=== PATIENT | male | born 1960 | race Two or more races ===

== ENCOUNTER 2025-05-18 02:17 | Emergency (ER) | payer OTHER ==
[~2025-05-18] VITALS: Ht 175.3 cm; Wt 89.9 kg
[2025-05-18 03:12] VITALS: BP 157/82; PULSE 55; RESP 18; TEMP 98.9; O2SAT 96
[2025-05-18] MEDS: IBUPROFEN 600 MG TAB PO ONE (03:14)
--- NOTE | 2025-05-18 03:18 | ED.PDOC ---
HPI (NEURO) HPI Comments 64-year-old male complains of dull left-sided headache and left neck pain after he moved his head while fixing his house. Patient states he felt a pop Chief Complaint: Headache Time Seen by MD: 02:19 Information Source: Patient Mode of Arrival: Ambulatory Severity: Moderate Headache Severity: Moderate, Severe Timing: Hours Duration: Since onset Headache Quality: Aching Past Medical History PAST MEDICAL HISTORY: High Lipids Surgical History: Denies all surgeries Family History Family History: Reviewed,noncontributory to illness Social History Smoker: Non-Smoker Alcohol: Denies ETOH Use Drugs: Denies Drug Use Lives In: Home Neurological: reports: headache Musculoskeletal: reports: neck pain All Other Systems: Reviewed and Negative Physical Exam General Appearance: Mild Distress, Moderate Distress HEENT: Normal ENT Inspection, Pharynx Normal, TMs Normal Neck: Other (mild tenderness left neck) Respiratory: Chest Non-Tender, Lungs Clear, No Accessory Muscle Use, No Respiratory Distress, Normal Breath Sounds Cardiovascular: No Edema, No JVD, No Murmur, No Gallop, Normal Peripheral Pulses, Regular Rate/Rhythm Breast Exam: Deferred Gastrointestinal: No Organomegaly, Non Tender, No Pulsatile Mass, Normal Bowel Sounds, Soft Genitalia: Deferred Pelvic: Deferred Rectal: Deferred Extremities: No calf tenderness, Normal capillary refill, Normal inspection, Normal range of motion, Non-tender, No pedal edema Musculoskeletal : Apperance: Normal Neurologic: Alert, battery container tester II-XII nml as Tested, No Motor Deficits, Normal Affect, Normal Mood, No Sensory Deficits Cerebellar Function: Normal Reflexes: Normal Skin: Dry, Normal Color, Warm Lymphatic: No Adenopathy Was a procedure done? Was a procedure done?: No Differential Diagnosis (SZ) Seizure: Closed Head Injury, Mass Lesion, Meningitis, Syncope, Encephalopathy, Epilepsy-Break Through, Epilepsy-Status, Other X-Ray, Labs, Meds, VS Vital Signs Date Time Temp Pulse Resp B/P (MAP) Pulse Ox O2 Delivery O2 Flow Rate FiO2 05/18/25 03:12 98.9 55 18 157/82 (107) 96 98.9 05/18/25 02:18 96.1 56 18 136/85 98 96.1 Current Medications Medications (Trade) Dose Ordered Sig/Jeanne Route Start Time Stop Time Status Last Admin Ibuprofen (Motrin Tablet) 600 mg ONCE ONCE PO 05/18/25 03:00 05/18/25 03:01 DC 05/18/25 03:14 Time of 1ST Reevaluation: 03:17 Reevaluation 1ST: Unchanged Patient Education/Counseling: Diagnosis, Treatment Family Education/Counseling: No Family Present Departure 1 Departure Time of Disposition: 05:00 Impression: Primary Impression: Headache Additional Impression: Neck pain Disposition: 01 HOME / SELF CARE / HOMELESS Condition: Stable e-Prescriptions Gabapentin (Once-Daily) (Gabapentin) 300 Mg Tab 300 MG PO Q6HP PRN, #60 TAB Prov: MARINE PORTER MD 05/18/25 Discharged With: Self Critical Care Note Critical Care Time?: No Stability Stability form required: No Heart Score Heart Score: Heart Score Response (Comments) Value History N/A 0 EKG N/A 0 Age N/A 0 Risk Factors N/A 0 Troponin N/A 0 Total 0 MARINE PORTER MD May 18, 2025 03:18
--- NOTE | 2025-05-18 03:23 | DVH ---
EXAM: CT HEAD WITHOUT CONTRAST INDICATION: severe headache TECHNIQUE: CT of the head without intravenous contrast. Radiation Dose : 1. Head: CT Dose: CTDI volume is 51.82 mGy. Dose-length product is 1267.86 mGy*cm The dose indicators for CT are the volume Computed Tomography (CT) Dose Index (CTDIvol) and the Dose Length Product (DLP), and are measured in units of mGy and mGy-cm, respectively. These indicators are not patient dose, but values generated from the CT scanner acquisition factors. The report includes radiation exposure data for exposures received during this examination. COMPARISON: None FINDINGS: There is no evidence of acute intracranial hemorrhage, extra-axial collection, mass effect, midline s hift, herniation or hydrocephalus. Increased prominence of the ventricles, sulci and cisterns consistent with the sequelae of atrophic c ortical volume loss. The ayoub-white differentiation is intact. Patchy periventricular and subcortical white matter hypoattenuation is nonspecific but may be related to small vessel ischemic disease. Bilateral ethmoid mucosal sinus disease. The remaining visualized paranasal sinuses and mastoid air c ells are clear. The surrounding soft tissues and osseous structures are unremarkable. IMPRESSION: 1. No acute intracranial abnormality. 2. Atrophic cortical volume loss. Radiation optimization: All CT scans at this facility use at least one of these dose optimization driss hniques: automated exposure control mA and/or kV adjustment per patient size (includes targeted exam s where dose is matched to clinical indication) or iterative reconstruction.
--- NOTE | 2025-05-18 03:28 | DVH ---
EXAM: CT CERVICAL WITHOUT CONTRAST HISTORY: severe neck pain COMPARISON: CT HEAD WITHOUT CONTRAST on DOS: 05/18/25 CTDIvol 51.82 mGy, DLP 1267.86 mGy*cm. TECHNIQUE: Multiple axial CT images of the spine were obtained using bone algorithm. Axial and coron al reformatting was done. Bone and soft tissue windows were reviewed. FINDINGS: No CT evidence of definite acute fracture, spinal dislocation, or significant appearing acute subluxa tion is seen. The visualized paraspinal soft tissues are grossly unremarkable. Minimal anterior osteophytosis at the C4-C5 through C6-C7 levels. IMPRESSION: 1. No definite CT evidence of acute fracture or dislocation of the bony cervical spine. 2. Minor degenerative changes.
[2025-05-18] MEDS ORDERED: GABA300T4 PO (03:58)
== END 2025-05-18 04:17 | disposition home or self-care (01) ==
LOC: ER 02:17
DX: R51.9 Headache, unspecified (principal); M54.2 Cervicalgia; E78.5 Hyperlipidemia, unspecified
CPT/HCPCS: 70450; 72125